=== PATIENT | male | born 1995 | race Hispanic/Latino ===

== ENCOUNTER 2022-08-24 15:45 | Emergency (ER) | payer OTHER ==
[2022-08-24] MEDS ORDERED: NA CHLORIDE 0.9% 1,000 ML ONE (16:02)
[2022-08-24] MEDS ORDERED: FAMOTIDINE 20 MG/2 ML VIAL IV ONE (16:02)
[2022-08-24 16:25] LABS: Absolute Lymphocytes (CBC) 1.2 K/uL (0.7-4.9); Hematocrit 43.1 % (39.6-49.0); MCV 91.4 fL (80-100); MPV 9.6 fL (7.6-11.3); RBC Red Blood Cell Count 4.71 M/uL (4.33-5.43)
[2022-08-24 16:53] LABS: ALT/SGPT 1019 U/L (16-61); Albumin 4.1 g/dL (3.4-5.0); Alkaline Phosphatase 115 U/L (45-117); BUN Blood Urea Nitrogen 12 mg/dL (7-18); Bicarbonate 25 mmol/L (21-32); Bilirubin Total 3.6 mg/dL (0.2-1.0); Glomerular Filtration Rate 121 ml/min (=/>90); Glucose Level 89 mg/dL (74-106); Lipase 33 U/L (13-75); Protein, Total 7.7 g/dL (6.4-8.2); Sodium Level 136 mmol/L (136-145)
[2022-08-24 16:54] LABS: Potassium 4.3 mmol/L (3.5-5.1); Troponin High Sensitivity < 3.0 pg/mL (<58.9)
[2022-08-24 16:56] LABS: AST/SGOT 943 U/L (15-37)
--- NOTE | 2022-08-24 17:50 | RAD REPORT ---
EXAM DESCRIPTION: CT - Abdomen Pelvis W Contrast - 08/24/2022 5:30 pm CLINICAL HISTORY: Abdominal pain COMPARISON: none. TECHNIQUE: Computed axial tomography of the abdomen pelvis was obtained. 100 cc Isovue-300 was admin istered intravenously. Oral contrast was not requested which limits evaluation of bowel and appendix All CT scans are performed using dose optimization technique as appropriate and may include automated exposure control or mA/KV adjustment according to patient size. FINDINGS: The gallbladder wall is mildly thickened. The liver, spleen, pancreas, adrenal and kidneys appear unremarkable. There is no evidence of diverticulitis. Normal appendix IMPRESSION: Mildly thickened gallbladder wall may indicate cholecystitis. Gallstones can be occult o n CT. Ultrasound is recommended
--- NOTE | 2022-08-24 18:34 | RAD REPORT ---
EXAM DESCRIPTION: US - Abdomen Exam Limited - 08/24/2022 6:11 pm CLINICAL HISTORY: Abdominal pain. COMPARISON: None. FINDINGS: Several small gallstones. Gallbladder wall 4 millimeters The biliary tree is normal caliber. IMPRESSION: Cholelithiasis Thickened gallbladder wall may indicate cholecystitis
[2022-08-24] MEDS ORDERED: PIPERACIL/TAZO 3.375 GM VIAL IV ONE ×2 (18:56→19:01)
[2022-08-24] MEDS ORDERED: NA CHLORIDE 0.9% 100 ML ONE ×2 (18:56→19:01)
[2022-08-24] MEDS ORDERED: ONDANSETRON 4 MG/2 ML VIAL ONE (19:11)
[2022-08-24] MEDS ORDERED: KETOROLAC 30 MG/ML INJ ONE (19:12)
--- NOTE | 2022-08-24 19:13 | ER ---
Nurse's Notes [facility] Name: Tj Joshi Age: 27 yrs Sex: Male : 1995 Arrival Date: 08/24/2022 Time: 15:48 Bed 12 Private MD: Diagnosis: Other cholelithiasis without obstruction;Acute cholecystitis;Abnormal results of liver function studies Presentation: 08/24 15:49 Chief complaint: Patient states: R flank pain that started 3 days ago, also reports ph epigastric pain and nausea, denies V/D, urinary symptoms or fever/chills. Coronavirus screen: Vaccine status: Patient reports being unvaccinated. Ebola Screen: No symptoms or risks identified at this time. Initial Sepsis Screen: Does the patient meet any 2 criteria? No. Patient's initial sepsis screen is negative. Does the patient have a suspected source of infection? No. Patient's initial sepsis screen is negative. Risk Assessment: Do you want to hurt yourself or someone else? Patient reports no desire to harm self or others. Onset of symptoms was August 24, 2022. 15:49 Method Of Arrival: Law Enforcement: [place] [employer] 15:49 Acuity: JERALD 3 ph Triage Assessment: 15:52 General: Appears in no apparent distress. comfortable, well groomed, Behavior is calm, ph cooperative, appropriate for age, Denies fever, chills. Pain: Complains of pain in epigastric area and posterior aspect of right lateral abdomen. Neuro: Level of Consciousness is awake, alert, obeys commands, Oriented to person, place, time, situation. Cardiovascular: Capillary refill < 3 seconds in bilateral fingers Patient's skin is warm and dry. Respiratory: Airway is patent Respiratory effort is even, unlabored, Respiratory pattern is regular, symmetrical. GI: Reports lower abdominal pain, upper abdominal pain, nausea, Patient currently denies diarrhea, vomiting. : Reports pain in right flank(s). Derm: Skin is intact, Skin is pink, warm \T\ dry. Musculoskeletal: Circulation, motion, and sensation intact. Range of motion: intact in all extremities. Historical: - Allergies: 15:51 No Known Allergies; ph - PMHx: 15:51 None; ph - PSHx: 15:51 None; ph - Immunization history:: Adult Immunizations up to date. - Social history:: Smoking status: unknown. Screenin:52 [facility] ED Fall Risk Assessment (Adult) History of falling in the last 3 months, ph including since admission No falls in past 3 months (0 pts) Confusion or Disorientation No (0 pts) Intoxicated or Sedated No (0 pts) Impaired Gait No (0 pts) Mobility Assist Device Used No (0 pt) Altered Elimination No (0 pt) Score/Fall Risk Level 0 - 2 = Low Risk Oriented to surroundings, Maintained a safe environment, Hourly rounding (assess needs \T\ fall precautionary measures) done. Abuse screen: Denies threats or abuse. Denies injuries from another. Nutritional screening: No deficits noted. Tuberculosis screening: No symptoms or risk factors identified. Assessment: 16:34 General: SEE TRIAGE ASSESSMENT. ph 17:24 Reassessment: Patient appears in no apparent distress at this time. Patient and/or ph family updated on plan of care and expected duration. Pain level reassessed. Patient is alert, oriented x 3, equal unlabored respirations, skin warm/dry/pink. pt taken to CT via stretcher, accompanied by guards. Vital Signs: 15:49 BP 123 / 89; Pulse 78; Resp 18; Temp 97.3; Pulse Ox 100% on R/A; Weight 65.77 kg; ph Height 5 ft. 4 in. ; 17:25 BP 118 / 78; Pulse 71; Resp 18; Pulse Ox 99% on R/A; ph 15:49 Body Mass Index 24.89 (65.77 kg, 162.56 cm) ph ED Course: 15:48 Patient arrived in ED. ss 15:49 Dafne Amos, MIKE is Primary Nurse. ph 15:49 Shannon Lauren FNP-C is PHCP. kb 15:49 Anthony Ponce MD is Attending Physician. kb 15:51 Triage completed. ph 15:51 Arm band placed on Patient placed in an exam room, on a stretcher. ph 15:52 Patient has correct armband on for positive identification. Bed in low position. Call light in reach. Side rails up X 1. Pulse ox on. NIBP on. 16:20 Initial lab(s) drawn, by or, sent to lab. Inserted saline lock: 22 gauge in right ph forearm, using aseptic technique. Blood collected. 17:32 CT Abd/Pelvis - IV Contrast Only In Process Unspecified. EDMS 18:13 US Abdomen Limited In Process Unspecified. EDMS Administered Medications: 16:20 Drug: NS 0.9% IV 1000 ml Route: IV; Rate: 1 bolus; Site: right forearm; ph 16:20 Drug: Famotidine IVP 20 mg Route: IVP; Site: right forearm; ph 16:34 Follow up: Response: No adverse reaction ph Medication: 15:52 VIS not applicable for this client. ph Outcome: 19:13 ER care complete, transfer ordered by kb Signatures: Dispatcher [employer] EDMS Shannon Lauren, ANNALISA-C ANNALISA-Vandana Gonzalez, RN RN Dafne Amos, MIKE RN
--- NOTE | 2022-08-24 19:13 | EDPHYS ---
Physician Documentation [facility] Name: Tj Joshi Age: 27 yrs Sex: Male : 1995 Arrival Date: 08/24/2022 Time: 15:48 Bed 12 Private MD: ED Physician Anthony Ponce HPI: 08/24 18:45 This 27 yrs old Male presents to ER via [employer] with complaints of kb Flank Pain. 18:46 The patient presents with abdominal pain in the epigastric area. Onset: The kb symptoms/episode began/occurred 3 day(s) ago. The symptoms do not radiate. Associated signs and symptoms: Pertinent positives: nausea, Pertinent negatives: diarrhea, fever, vomiting. The symptoms are described as constant. Modifying factors: The symptoms are alleviated by nothing, the symptoms are aggravated by nothing. Severity of pain: At its worst the pain was moderate in the emergency department the pain is unchanged. The patient has not experienced similar symptoms in the past. The patient has not recently seen a physician. Patient is a 27-year-old male with no medical history who presents for pain that started right flank and moved to epigastric area 3 days ago. Reports nausea. Denies vomiting, diarrhea, urinary symptoms.. Historical: - Allergies: 15:51 No Known Allergies; ph - PMHx: 15:51 None; ph - PSHx: 15:51 None; ph - Immunization history:: Adult Immunizations up to date. - Social history:: Smoking status: unknown. ROS: 18:40 Constitutional: Negative for fever, chills, and weight loss. kb 18:40 Abdomen/GI: Positive for abdominal pain, nausea, Negative for vomiting, diarrhea. 18:41 Back: Positive for flank pain, on the right. kb 18:41 All other systems are negative. Exam: 16:38 Constitutional: This is a well developed, well nourished patient who is awake, alert, kb and in no acute distress. Head/Face: Normocephalic, atraumatic. ENT: Moist Mucous membranes Cardiovascular: Regular rate and rhythm with a normal S1 and S2. No gallops, murmurs, or rubs. No pulse deficits. Respiratory: Respirations even and unlabored. No increased work of breathing. Talking in full sentences Back: No spinal tenderness. No costovertebral tenderness. Full range of motion. Skin: Warm, dry with normal turgor. Normal color. MS/ Extremity: Pulses equal, no cyanosis. Neurovascular intact. Full, normal range of motion. Neuro: Awake and alert, GCS 15, oriented to person, place, time, and situation. Moves all extremities. Normal gait. Psych: Awake, alert, with orientation to person, place and time. Behavior, mood, and affect are within normal limits. 16:38 Abdomen/GI: Inspection: abdomen appears normal, Bowel sounds: normal, in all quadrants, Palpation: soft, in all quadrants, moderate abdominal tenderness, in the epigastric area. 16:38 ECG was reviewed by the Attending Physician. Vital Signs: 15:49 BP 123 / 89; Pulse 78; Resp 18; Temp 97.3; Pulse Ox 100% on R/A; Weight 65.77 kg; ph Height 5 ft. 4 in. ; 17:25 BP 118 / 78; Pulse 71; Resp 18; Pulse Ox 99% on R/A; ph 15:49 Body Mass Index 24.89 (65.77 kg, 162.56 cm) ph MDM: 15:50 Patient medically screened. 18:41 Differential diagnosis: nephrolithiasis, diverticulitis, pancreatitis, cholecystitis, kb cholelithiasis. Data reviewed: vital signs, nurses notes. Consideration of Admission/Observation pt will be transferred due to lack of GI services at this facility. 18:45 Historians other than the Patient: nurse at alf unit. Counseling: I had a detailed discussion with the patient and/or guardian regarding: the historical points, exam findings, and any diagnostic results supporting the discharge/admit diagnosis, lab results, radiology results, the need to transfer to another facility, [facility] does not immediately have the required specialist. 18:47 ED course: Patient is a 27-year-old male with no medical history who presents with epigastric pain On exam patient has moderate epigastric tenderness. Respirations even and unlabored, lungs clear bilaterally, nontoxic in appearance. Ultrasound reveals cholelithiasis with cholecystitis. Labs remarkable for elevated liver enzymes. Patient educated on findings and need for transfer. Transfer initiated with [facility] manage care.. 18:59 Management of patient was discussed with the following: Dr Gray, general surgeon at [facility]. Accepts pt for transfer. 08/24 15:51 Order name: CBC with Diff; Complete Time: 16:33 kb 08/24 15:51 Order name: CMP; Complete Time: 16:56 kb 08/24 15:51 Order name: Lipase; Complete Time: 16:56 kb 08/24 15:51 Order name: CT Abd/Pelvis - IV Contrast Only; Complete Time: 18:01 kb 08/24 15:51 Order name: IV Saline Lock; Complete Time: 16:33 kb 08/24 15:51 Order name: Labs collected and sent; Complete Time: 16:33 kb 08/24 15:51 Order name: Urine Dipstick-Ancillary (obtain specimen) kb 08/24 15:51 Order name: Troponin High Sensitivity; Complete Time: 16:56 kb 08/24 15:51 Order name: EKG; Complete Time: 15:51 kb 08/24 15:51 Order name: EKG - Nurse/Tech; Complete Time: 16:33 kb 08/24 16:57 Order name: US Abdomen Limited; Complete Time: 18:37 kb 08/24 18:43 Order name: SARS RAPID kb 08/24 18:53 Order name: COVID-19 SARS RT PCR bp EC:38 Rate is 62 beats/min. Rhythm is regular. QRS [place] is Normal. TN interval is normal at kb 132 msec. QRS interval is normal at 88 msec. QT interval is normal at 387 msec. Administered Medications: 16:20 Drug: NS 0.9% IV 1000 ml Route: IV; Rate: 1 bolus; Site: right forearm; ph 16:20 Drug: Famotidine IVP 20 mg Route: IVP; Site: right forearm; ph 16:34 Follow up: Response: No adverse reaction ph Disposition Summary: 08/24/22 19:13 Transfer Ordered Accepting Physician: Dr Isaac foley Transfer Location: [facility] kb Reason: Specialty kb Condition: Stable kb Problem: new kb Symptoms: are unchanged kb Diagnosis - Other cholelithiasis without obstruction kb - Acute cholecystitis kb - Abnormal results of liver function studies kb Forms: - Medication Reconciliation Form kb - SBAR form kb Signatures: Dispatcher [employer] EDMS Shannon Lauren FNP-C FNP-Dafne Sultana RN RN ph Corrections: (The following items were deleted from the chart) 18:41 18:40 Abdomen/GI: Positive for abdominal pain, Negative for nausea, vomiting, and kb diarrhea, kb
[2022-08-24 19:21] LABS: Urine Blood Negative (Negative); Urine Glucose Negative (Negative); Urine Protein Negative (Negative); Urine Specific Gravity 1.015 (1.005-1.030); Urine pH 7.5 (5.0-7.0)
[2022-08-25 03:05] VITALS: TEMP 97.3
[2022-08-25 03:09] VITALS: BP 122/80; O2SAT 99
--- NOTE | 2022-08-25 13:22 | EKG ---
Test Date: 2022-08-24 Test Time: 16:29:21 [employer] Helper: PH MEASUREMENT RESULTS: Intervals: Rate: 62 MN: 132 QRSD: 88 QT: 382 QTc: 387 [place]: P: 12 MN: 132 QRS: 41 T: 32 INTERPRETIVE STATEMENTS: Normal sinus rhythm Normal ECG No previous ECG available for comparison Electronically Signed On 08-25-22 13:19:47 CDT by Luis Finley
== END 2022-08-24 21:39 | disposition short-term general hospital (02) ==
LOC: ER 15:45
DX: K80.00 Calculus of gallbladder with acute cholecystitis without obstruction (principal); R94.5 Abnormal results of liver function studies; Z20.822 Contact with and (suspected) exposure to COVID-19
CPT/HCPCS: 96365; 96361; 93005; 85025; 36415; 81003; 84484; 83690; 80053; 74177; 76705; 96375; 99285; U0003; Q9967; J2543 ×2; J2405; J7030